=== PATIENT | male | born 1985 | race Caucasian/White ===

== ENCOUNTER 2017-07-09 17:00 | Emergency (ER) | payer SELFPAY ==
[~2017-07-09] VITALS: Ht 175.3 cm; Wt 114.3 kg
[~2017-07-09 17:00] MED LIST: AUGMENTIN875 MG PO; DOXYCYCLINE HY100 MG PO; FLONASE16 G1 BOTH NARES; HYDROCODON-ACE1 EAC7 PO; IBUPROFEN800 MG PO; KEFLEX500 MG PO; No home meds; PREDNISONE5 M1 PO; PRILOSEC OTC20 MG PO; PROMETHAZINE HC25 M1 PO; ZYRTEC10 M1 PO
[2017-07-09] MEDS ORDERED: AZITHROMYCIN250 MG PO (17:50)
[2017-07-09] MEDS ORDERED: TESSALON PERLE100 MG PO (17:50)
[2017-07-09 18:02] VITALS: BP 124/89
== END 2017-07-09 18:03 | disposition home or self-care (01) ==
LOC: EME 17:00
DX: J20.9 Acute bronchitis, unspecified (principal); R42 Dizziness and giddiness; F17.200 Nicotine dependence, unspecified, uncomplicated
CPT/HCPCS: 99281; 99283

== ENCOUNTER 2017-08-27 20:05 | Emergency (ER) | payer SELFPAY ==
[~2017-08-27] VITALS: Ht 175.3 cm; Wt 110.8 kg
[~2017-08-27 20:05] MED LIST changes: +AZITHROMYCIN250 MG PO; +TESSALON PERLE100 MG PO
[2017-08-27 20:42] LABS: HEMATOCRIT 50.4 % (38.0-50.0); MCH 29.5 PG (29.0-34.0); MCHC 34.1 G/DL (30.0-36.0); MCV 86.3 FL (86-99); MEAN PLAT.VOLUME 9.6 uM^3 (9.0-12.4); PLATELET COUNT 406 K/uL (156-360); RBC DIS.WIDTH-CV 12.6 % (11.8-14.6); RBC DIS.WIDTH-SD 39.5 % (39-53); RED BLOOD COUNT 5.84 M/uL (4.00-5.50); WHITE BLOOD COUNT 19.6 K/uL (4.1-10.2)
[2017-08-27 20:52] LABS: CHLORIDE 105 mEq/L (99-109); POTASSIUM 4.3 mEq/L (3.7-5.4); SODIUM 137 mEq/L (136-147)
[2017-08-27 20:54] LABS: GLUCOSE 117 mg/dL (70-99)
[2017-08-27 20:56] LABS: ANION GAP 9 MEQ/L (2-14); TOTAL BILIRUBIN 0.6 mg/dL (0.0-1.0)
[2017-08-27 20:58] LABS: ALKALINE PHOSPHATASE 101 IU/L (3-129); GFR ESTIMATE (CALCULATED) > 59 mL/min/
[2017-08-27 20:59] LABS: ADD MIUA? YES; BILIRUBIN SMALL; BLOOD NEGATIVE; COLOR AMBER ((YELLOW)); GLUCOSE (STRIP) NEGATIVE; KETONES 5; LEUKOCYTES NEGATIVE; NITRITE NEGATIVE; PROTEIN (STRIP) 30; SPECIFIC GRAVITY 1.032 (1.000-1.030)
[2017-08-27 20:59] LABS: UREA NITROGEN (BUN) 17 mg/dL (9-23)
[2017-08-27 21:01] LABS: LIPASE 18 U/L (1.0-51.0)
[2017-08-27 21:16] LABS: BACTERIA RARE /HPF; EPITHELIAL CELLS RARE /HPF; HYALINE CASTS 0-5 /LPF; MUCUS 4+ /LPF; RED BLOOD CELLS 0-5 /HPF (0-5); UCUL ADDED? NO; WHITE BLOOD CELLS 0-5 /HPF (0-5)
[2017-08-27] MEDS ORDERED: ZOFRAN4 MG PO (22:43)
[2017-08-27 22:53] VITALS: BP 122/76
== END 2017-08-27 22:55 | disposition home or self-care (01) ==
LOC: EME 20:05
DX: R11.2 Nausea with vomiting, unspecified (principal); R19.7 Diarrhea, unspecified; E86.0 Dehydration; R10.32 Left lower quadrant pain; I10 Essential (primary) hypertension; F17.200 Nicotine dependence, unspecified, uncomplicated
CPT/HCPCS: 74176; 80053; 81003; 83690; 85027; 99281; 99284

== ENCOUNTER 2017-08-29 07:19 | Emergency (ER) | payer SELFPAY ==
[~2017-08-29] VITALS: Ht 175.3 cm; Wt 107.6 kg
[~2017-08-29 07:19] MED LIST changes: +ZOFRAN4 MG PO
[2017-08-29 07:48] LABS: ADD MIUA? YES; BILIRUBIN SMALL; BLOOD NEGATIVE; COLOR AMBER ((YELLOW)); GLUCOSE (STRIP) NEGATIVE; KETONES 5; LEUKOCYTES NEGATIVE; NITRITE NEGATIVE; PROTEIN (STRIP) 30; SPECIFIC GRAVITY 1.035 (1.000-1.030)
[2017-08-29 08:04] LABS: HEMATOCRIT 50.7 % (38.0-50.0); MCH 29.3 PG (29.0-34.0); MCHC 34.9 G/DL (30.0-36.0); MCV 83.8 FL (86-99); MEAN PLAT.VOLUME 9.6 uM^3 (9.0-12.4); PLATELET COUNT 451 K/uL (156-360); RBC DIS.WIDTH-CV 12.4 % (11.8-14.6); RBC DIS.WIDTH-SD 37.7 % (39-53); RED BLOOD COUNT 6.05 M/uL (4.00-5.50)
[2017-08-29 08:11] LABS: BACTERIA NONE SEEN /HPF; EPITHELIAL CELLS RARE /HPF; MUCUS 3+ /LPF; RED BLOOD CELLS 0-5 /HPF (0-5); UCUL ADDED? NO; WHITE BLOOD CELLS NONE SEEN /HPF (0-5)
[2017-08-29 08:14] LABS: CHLORIDE 105 mEq/L (99-109)
[2017-08-29 08:15] LABS: SODIUM 137 mEq/L (136-147)
[2017-08-29 08:17] LABS: GLUCOSE 115 mg/dL (70-99)
[2017-08-29 08:18] LABS: ANION GAP 13 MEQ/L (2-14); POTASSIUM 3.4 mEq/L (3.7-5.4)
[2017-08-29 08:19] LABS: TOTAL BILIRUBIN 0.5 mg/dL (0.0-1.0)
[2017-08-29 08:20] LABS: ALKALINE PHOSPHATASE 102 IU/L (3-129); GFR ESTIMATE (CALCULATED) > 59 mL/min/
[2017-08-29 08:22] LABS: UREA NITROGEN (BUN) 18 mg/dL (9-23)
[2017-08-29] MEDS ORDERED: BENTYL20 MG PO (09:31)
[2017-08-29 09:43] VITALS: BP 130/79
== END 2017-08-29 10:07 | disposition home or self-care (01) ==
LOC: EME 07:19
DX: R19.7 Diarrhea, unspecified (principal); R10.9 Unspecified abdominal pain; I10 Essential (primary) hypertension; F17.200 Nicotine dependence, unspecified, uncomplicated
CPT/HCPCS: 80053; 81003; 85027; 99281; 99284

== ENCOUNTER 2018-03-11 10:41 | Emergency (ER) | payer SELFPAY ==
[~2018-03-11] VITALS: Ht 175.3 cm; Wt 108.5 kg
[~2018-03-11 10:41] MED LIST changes: +BENTYL20 MG PO
[2018-03-11 13:04] VITALS: BP 159/72
== END 2018-03-11 13:09 | disposition home or self-care (01) ==
LOC: EME 10:41
DX: J02.0 Streptococcal pharyngitis (principal); F17.200 Nicotine dependence, unspecified, uncomplicated; I10 Essential (primary) hypertension; F41.9 Anxiety disorder, unspecified
CPT/HCPCS: 87651 90; 99281; 99284; J0561

== ENCOUNTER 2018-05-18 15:53 | Emergency (ER) | payer SELFPAY ==
[~2018-05-18] VITALS: Ht 175.3 cm; Wt 112.1 kg
[2018-05-18] MEDS ORDERED: AMOXICILLIN500 M1 PO (16:49)
[2018-05-18 16:57] VITALS: BP 145/96
== END 2018-05-18 16:57 | disposition home or self-care (01) ==
LOC: EME 15:53
DX: H66.91 Otitis media, unspecified, right ear (principal)
CPT/HCPCS: 99281; 99283